=== PATIENT | male | born 1980 | race Asian ===

== ENCOUNTER 2019-02-11 00:43 | Emergency (ER) | payer SELFPAY, OTHER ==
[2019-02-11] MEDS: HYDROCODONE/APAP (10/325) TAB PO (02:18)
[2019-02-11] MEDS: DIPHTH/TET/ACEL PERTUSS (ADULT) 0.5 ML VIAL IM* (02:18)
[2019-02-11] MEDS: ONDANSETRON (ODT) 4 MG TAB ODT (02:19)
== END 2019-02-11 04:09 | disposition home or self-care (01) ==
LOC: FTE 00:43
DX: S06.0X0A Concussion without loss of consciousness, initial encounter (principal); S01.511A Laceration without foreign body of lip, initial encounter; S16.1XXA Strain of muscle, fascia and tendon at neck level, initial encounter; Y04.2XXA Assault by strike against or bumped into by another person, initial encounter; Z23 Encounter for immunization
CPT/HCPCS: 70450; 70486; 72125; 90471; 90715; 99284-25

== ENCOUNTER 2019-03-12 14:50 | Emergency (ER) | payer SELFPAY | END 2019-03-12 15:20 | disposition home or self-care (01) | LOC: E/R 15:20 | DX: Z09 Encounter for follow-up examination after completed treatment for conditions other than malignant neoplasm (principal) | CPT/HCPCS: 99282 ==